=== PATIENT | male | born 1960 | race Caucasian/White ===

== ENCOUNTER 2021-01-14 17:12 | Emergency (ER) | payer OTHER, BC ==
[~2021-01-14] VITALS: Ht 188 cm; Wt 94.5 kg
[2021-01-14 19:03] VITALS: BP 133/92
== END 2021-01-14 19:04 | disposition home or self-care (01) | DRG 605 ==
LOC: ED 17:12
PROC: 0HQ0XZZ Repair Scalp Skin, External Approach (ICD-10-PCS; principal; 2021-01-14)
DX: S01.01XA Laceration without foreign body of scalp, initial encounter (principal); W22.09XA Striking against other stationary object, initial encounter; Y93.89 Activity, other specified; Y92.89 Other specified places as the place of occurrence of the external cause; Y99.0 Civilian activity done for income or pay